=== PATIENT | female | born 1995 | race Native Hawaiian/Other Pacific Islander ===

== ENCOUNTER 2021-02-19 13:21 | Outpatient (CLI) | payer OTHER | END 2021-02-19 22:25 | disposition home or self-care (01) | LOC: RAD 13:21 | PROVIDERS: ATTEND Physician Assistant | DX: M79.672 Pain in left foot (principal) ==

== ENCOUNTER 2021-11-19 11:49 | Emergency (ER) | payer OTHER ==
[~2021-11-19] VITALS: Ht 162.6 cm; Wt 50.8 kg
[2021-11-19 11:52] VITALS: TEMP 98.9
[2021-11-19 13:20] VITALS: BP 126/87
== END 2021-11-19 13:23 | disposition home or self-care (01) ==
LOC: ED 11:49
PROC: 2W3CX1Z Immobilization of Right Lower Arm using Splint (ICD-10-PCS; principal; 2021-11-19)
PROC: 0PSHXZZ Reposition Right Radius, External Approach (ICD-10-PCS; 2021-11-19)
DX: S52.531A Colles' fracture of right radius, initial encounter for closed fracture (principal); S52.611A Displaced fracture of right ulna styloid process, initial encounter for closed fracture; W17.89XA Other fall from one level to another, initial encounter; Y92.89 Other specified places as the place of occurrence of the external cause
CPT/HCPCS: 96360; 96374; 96375; 99285; J1170; J1200; J2060; J2405